=== PATIENT | female | born 1985 | race African-American/Black ===

== ENCOUNTER 2023-09-13 18:00 | Emergency (ER) | payer SELFPAY ==
[~2023-09-13] VITALS: Ht 167.6 cm; Wt 100.0 kg
[2023-09-13 18:03] VITALS: BP 147/80; PULSE 70; RESP 16; TEMP 98; O2SAT 100
[2023-09-13 20:10] LABS: BASOPHILS % 0.5 % (0.0-2.0); EOSINOPHILS % 0.7 % (0.0-5.0); HEMATOCRIT. 44.8 % (36.0-48.0); HEMOGLOBIN. 14.8 g/dL (12.0-16.0); LYMPHOCYTES % 27.8 % (20.0-50.0); MEAN CORPUSCULAR HEMOGLOBIN 31.7 pg (28.0-32.0); MEAN CORPUSCULAR VOLUME 96.1 fL (81.0-99.0); MEAN PLATELET VOLUME 8.9 fl (7.4-10.4); MONOCYTES % 4.3 % (2.0-8.0); NEUTROPHILS % 66.7 % (40.0-76.0); PLATELET 254 x1000/uL (130-400); RED BLOOD CELL COUNT 4.66 mill/uL (4.2-5.4); RED CELL DISTRIBUTION WIDTH 13.7 % (11.6-14.6); WHITE BLOOD COUNT 9.2 x1000/uL (4.5-11.0)
[2023-09-13 20:14] LABS: CHLORIDE 105 mEq/L (98-107); POTASSIUM 3.8 mEq/L (3.5-5.1); SODIUM 139 mEq/L (136-145)
[2023-09-13 20:15] LABS: CALCIUM 9.4 mg/dL (8.7-10.4); CARBON DIOXIDE 26 mEq/L (21-32)
[2023-09-13 20:20] LABS: CREATININE 0.7 mg/dL (0.6-1.0); ETHANOL BLOOD < 10 mg/dL (<10); GLUCOSE 76 mg/dL (70-105); UREA NITROGEN BLOOD 10 mg/dL (9-23)
[2023-09-13] MEDS: LEVETIRACETAM 500MG PREMIX 100 ML IV ONE ×2 (20:21→20:22)
[2023-09-13] MEDS: LORAZEPAM 2MG/ML INJ IV ONE (20:21)
[2023-09-13] MEDS ORDERED: KEPP500 MT (21:38)
[2023-09-13] MEDS: LEVETIRACETAM 500MG PREMIX 100 ML IV NR (23:22)
== END 2023-09-13 23:27 | disposition home or self-care (01) ==
LOC: ER 18:00
DX: G40.802 Other epilepsy, not intractable, without status epilepticus (principal); Z90.710 Acquired absence of both cervix and uterus
CPT/HCPCS: 80048; 80320; 83605; 85025; 36415; 70450; 96365; 96375; 99285; J1953; J2060; G0480

== ENCOUNTER 2023-09-21 16:10 | Emergency (ER) | payer MEDICAID ==
[~2023-09-21] VITALS: Ht 167.6 cm; Wt 102.0 kg
[~2023-09-21 16:10] MED LIST: KEPP500 MT
[2023-09-21 16:20] VITALS: TEMP 98.2; O2SAT 100
[2023-09-21] MEDS ORDERED: ACET-2708 MT (19:40)
[2023-09-21 22:01] VITALS: BP 128/80; PULSE 74; RESP 16
== END 2023-09-21 22:02 | disposition home or self-care (01) ==
LOC: ER 16:10
DX: R56.9 Unspecified convulsions (principal); I10 Essential (primary) hypertension
CPT/HCPCS: 82962; 93005; 99283

== ENCOUNTER 2024-02-07 12:45 | Emergency (ER) | payer MEDICAID, OTHER ==
[~2024-02-07] VITALS: Ht 167.6 cm; Wt 100.0 kg
[~2024-02-07 12:45] MED LIST changes: +ACET-2708 MT
[2024-02-07 12:47] VITALS: BP 138/88; PULSE 69; RESP 18; TEMP 98.4; O2SAT 98
== END 2024-02-07 16:42 | disposition left against medical advice (07) ==
LOC: ER 13:48
DX: R51.9 Headache, unspecified (principal); Z53.21 Procedure and treatment not carried out due to patient leaving prior to being seen by health care provider; I49.9 Cardiac arrhythmia, unspecified
CPT/HCPCS: 93005